=== PATIENT | female | born 1960 ===

== ENCOUNTER 2022-02-26 11:12 | Inpatient (IN) ==
[2022-02-26] MEDS ORDERED: DEXTROSE 10% 25 GM/250 ML BAG IV PRN (14:15)
[2022-02-26] MEDS ORDERED: ACETAMINOPHEN 325 MG TABLET PO PRN (14:15)
[2022-02-26] MEDS ORDERED: GLUCAGON 1 MG VIAL IM PRN (14:15)
[2022-02-26] MEDS ORDERED: DOCUSATE SODIUM 100 MG CAPSULE PO PRN (14:28)
[2022-02-26 15:12] LABS: Basophils % 0.1 % (0.0-0.8); Eosinophils % 0.1 % (0.00-10.9); Hematocrit 36.6 VOL% (35.7-47.0); Immature Granulocytes % 0.3 %; Immature Granulocytes Absolute 0.02 #; Mean Corpuscular HGB Conc 32.8 GM/DL (32-36); Mean Corpuscular Volume 96.6 FL (87-102); Monocytes # 0.7 10*3/uL (0.11-0.8); Monocytes % 10.1 % (1.7-12.7); Neutrophils % 74.4 % (38.7-73.9); Platelet Count 380 T/CUMM (130-400); Red Blood Count 3.79 MC/CUMM (3.8-5.5); Red Cell Distribution Width 14.1 % (9.3-17.3); White Blood Count 6.8 T/CUMM (4-12)
[2022-02-26] MEDS: ONDANSETRON 4 MG/2 ML VIAL IV PRN (15:24)
[2022-02-26 15:35] LABS: Albumin 2.7 G/DL (3.4-5.0); Bilirubin,Total 0.5 MG/DL (0.20-1.00); Calcium 8.9 MG/DL (8.5-10.1); Total Protein 7.5 G/DL (6.4-8.2)
[2022-02-26] MEDS: INSULIN LISPRO 100 UNIT/ML SUBCUT SCH ×2 (15:41→21:04)
[2022-02-26 15:45] LABS: Potassium 2.5 MMOL/L (3.5-5.1)
[2022-02-26] MEDS ORDERED: POTASSIUM CHLORIDE RIDER 10 MEQ/100 ML PREMIX IV PRN (17:16)
[2022-02-26] MEDS ORDERED: DOCUSATE SODIUM 100 MG CAPSULE PO SCH (21:00)
[2022-02-26] MEDS: POLYETHYLENE GLYCOL POWDER 17 GM PACK PO SCH (21:03)
[2022-02-26] MEDS: PANTOPRAZOLE 40 MG VIAL IV SCH (21:03)
[2022-02-26] MEDS: SODIUM CHLOR 0.9% KCL 40 MEQ 40 MEQ/1,000 ML BAG IV SCH (21:04)
[2022-02-26] MEDS ORDERED: fentaNYL 12 MCG/HR PATCH TRANSDERM SCH (21:15)
[2022-02-27 04:23] LABS: Basophils % 0.5 % (0.0-0.8); Eosinophils % 0.3 % (0.00-10.9); Hematocrit 34.2 VOL% (35.7-47.0); Hemoglobin 11.2 GM/DL (12.0-16.0); Immature Granulocytes % 0.3 %; Immature Granulocytes Absolute 0.02 #; Lymphocytes # 1.2 10*3/uL (1.4-4.0); Lymphocytes % 20.2 % (21.3-54.2); Mean Corpuscular HGB Conc 32.7 GM/DL (32-36); Mean Corpuscular Volume 96.1 FL (87-102); Mean Platelet Volume 9.6 FL (9.6-12.0); Monocytes # 0.7 10*3/uL (0.11-0.8); Monocytes % 12.4 % (1.7-12.7); Neutrophils % 66.3 % (38.7-73.9); Platelet Count 347 T/CUMM (130-400); Red Blood Count 3.56 MC/CUMM (3.8-5.5); Red Cell Distribution Width 14.1 % (9.3-17.3); White Blood Count 5.7 T/CUMM (4-12)
[2022-02-27 04:40] LABS: PT Patient Result 11.7 SECS (10.5-12.0)
[2022-02-27 04:42] LABS: Albumin 2.3 G/DL (3.4-5.0); Bilirubin,Total 0.5 MG/DL (0.20-1.00); Osmolality,Calculated 267.2 MOS/KG (273-304); Potassium 2.7 MMOL/L (3.5-5.1); Total Protein 6.8 G/DL (6.4-8.2)
[2022-02-27] MEDS: POTASSIUM CHLORIDE RIDER 10 MEQ/100 ML PREMIX IV PRN ×3 (07:27→14:48)
[2022-02-27] MEDS ORDERED: propofoL 200 MG/20 ML VIAL IV ONE (08:35)
[2022-02-27] MEDS ORDERED: LIDOCAINE 2% 5 ML VIAL ONE (08:35)
[2022-02-27] MEDS ORDERED: POLYETHYLENE GLYCOL POWDER 17 GM PACK PO SCH (09:00)
[2022-02-27] MEDS: PANTOPRAZOLE 40 MG VIAL IV SCH ×2 (09:51→21:49)
[2022-02-27] MEDS: SODIUM CHLOR 0.9% KCL 40 MEQ 40 MEQ/1,000 ML BAG IV SCH ×2 (09:55→19:08)
[2022-02-27] MEDS: METOCLOPRAMIDE 10 MG/2 ML VIAL IV SCH ×3 (10:00→21:49)
[2022-02-27] MEDS: INSULIN LISPRO 100 UNIT/ML SUBCUT SCH ×4 (10:28→22:26)
[2022-02-27] MEDS: POLYETHYLENE GLYCOL POWDER 17 GM PACK PO SCH ×2 (16:20→21:49)
[2022-02-27] MEDS: MORPHINE 2 MG/1 ML SYRINGE IV PRN (18:45)
[2022-02-28] MEDS: MORPHINE 2 MG/1 ML SYRINGE IV PRN ×4 (01:09→20:58)
[2022-02-28] MEDS: METOCLOPRAMIDE 10 MG/2 ML VIAL IV SCH ×4 (03:23→20:57)
[2022-02-28] MEDS: SODIUM CHLOR 0.9% KCL 40 MEQ 40 MEQ/1,000 ML BAG IV SCH ×4 (04:32→22:41)
[2022-02-28 06:07] LABS: Basophils % 0.4 % (0.0-0.8); Eosinophils % 0.4 % (0.00-10.9); Hematocrit 36.7 VOL% (35.7-47.0); Hemoglobin 12.1 GM/DL (12.0-16.0); Immature Granulocytes % 0.4 %; Immature Granulocytes Absolute 0.03 #; Lymphocytes # 1.2 10*3/uL (1.4-4.0); Lymphocytes % 16.2 % (21.3-54.2); Mean Corpuscular Volume 96.1 FL (87-102); Mean Platelet Volume 10.7 FL (9.6-12.0); Monocytes # 0.9 10*3/uL (0.11-0.8); Monocytes % 12.1 % (1.7-12.7); Neutrophils % 70.5 % (38.7-73.9); Platelet Count 283 T/CUMM (130-400); Red Blood Count 3.82 MC/CUMM (3.8-5.5); Red Cell Distribution Width 14.1 % (9.3-17.3); White Blood Count 7.1 T/CUMM (4-12)
[2022-02-28 06:24] LABS: Albumin 2.4 G/DL (3.4-5.0); Bilirubin,Total 0.5 MG/DL (0.20-1.00); Calcium 8.4 MG/DL (8.5-10.1); Osmolality,Calculated 273.7 MOS/KG (273-304); Potassium 3.3 MMOL/L (3.5-5.1); Total Protein 6.6 G/DL (6.4-8.2)
[2022-02-28] MEDS: PANTOPRAZOLE 40 MG VIAL IV SCH ×2 (08:32→20:57)
[2022-02-28] MEDS: POLYETHYLENE GLYCOL POWDER 17 GM PACK PO SCH ×2 (08:33→20:58)
[2022-02-28] MEDS: POTASSIUM CHLORIDE RIDER 10 MEQ/100 ML PREMIX IV PRN (08:38)
[2022-02-28] MEDS: INSULIN LISPRO 100 UNIT/ML SUBCUT SCH ×4 (08:40→20:59)
[2022-02-28] MEDS ORDERED: MAGNESIUM SULF RIDER 2 GM/50 ML PREMIX IV ONE (08:48)
[2022-02-28] MEDS ORDERED: POTASSIUM CHLORIDE 20 MEQ TABLET PO ONE (08:49)
[2022-02-28] MEDS ORDERED: fentaNYL 25 MCG/HR PATCH TRANSDERM SCH ×2 (12:00→21:00)
[2022-02-28] MEDS: ONDANSETRON 4 MG/2 ML VIAL IV PRN (15:15)
[2022-02-28] MEDS ORDERED: ZALEPLON 5 MG CAPSULE PO SCH (21:00)
[2022-03-01] MEDS: METOCLOPRAMIDE 10 MG/2 ML VIAL IV SCH ×2 (02:19→09:32)
[2022-03-01 05:25] LABS: Basophils % 0.2 % (0.0-0.8); Eosinophils # 0.1 10*3/uL (0.0-0.87); Eosinophils % 0.9 % (0.00-10.9); Hematocrit 36.5 VOL% (35.7-47.0); Hemoglobin 11.5 GM/DL (12.0-16.0); Immature Granulocytes % 0.3 %; Immature Granulocytes Absolute 0.03 #; Lymphocytes # 1.3 10*3/uL (1.4-4.0); Lymphocytes % 13.8 % (21.3-54.2); Mean Corpuscular HGB Conc 31.5 GM/DL (32-36); Mean Corpuscular Volume 98.4 FL (87-102); Mean Platelet Volume 10.2 FL (9.6-12.0); Monocytes # 0.8 10*3/uL (0.11-0.8); Monocytes % 8.8 % (1.7-12.7); Platelet Count 390 T/CUMM (130-400); Red Blood Count 3.71 MC/CUMM (3.8-5.5); Red Cell Distribution Width 14.4 % (9.3-17.3)
[2022-03-01 05:42] LABS: Albumin 2.4 G/DL (3.4-5.0); Bilirubin,Total 0.6 MG/DL (0.20-1.00); Calcium 9.1 MG/DL (8.5-10.1); Osmolality,Calculated 273.8 MOS/KG (273-304); Potassium 4.8 MMOL/L (3.5-5.1); Total Protein 6.9 G/DL (6.4-8.2)
[2022-03-01] MEDS: MORPHINE 2 MG/1 ML SYRINGE IV PRN (05:44)
[2022-03-01] MEDS: ONDANSETRON 4 MG/2 ML VIAL IV PRN (07:53)
[2022-03-01 08:58] VITALS: BP 117/79
[2022-03-01] MEDS: PANTOPRAZOLE 40 MG VIAL IV SCH (09:35)
[2022-03-01] MEDS: SODIUM CHLOR 0.9% KCL 40 MEQ 40 MEQ/1,000 ML BAG IV SCH (12:01)
[2022-03-01] MEDS: INSULIN LISPRO 100 UNIT/ML SUBCUT SCH (12:02)
[2022-03-01] MEDS: POLYETHYLENE GLYCOL POWDER 17 GM PACK PO SCH (12:02)
== END 2022-03-01 11:40 | disposition hospice, home (50) | DRG 862 ==
LOC: N.TELES → SUATTDRO 12:43
PROVIDERS: ADMIT Internal Medicine; ATTEND Internal Medicine